=== PATIENT | female | born 1945 | race Caucasian/White ===

== ENCOUNTER 2019-12-11 04:50 | Inpatient (IN) | payer MEDICARE ==
[~2019-12-11] VITALS: Ht 165.1 cm; Wt 90.7 kg
[2019-12-11] MEDS ORDERED: GLIMEPIRIDE2 MG PO (04:56)
[2019-12-11] MEDS ORDERED: TRANDOLAPRIL2 MG PO (04:56)
[2019-12-11] MEDS ORDERED: GLUCOPHAGE1000 MG PO (04:56)
[2019-12-11] MEDS ORDERED: TENORMIN100 MG PO (04:56)
[2019-12-11] MEDS ORDERED: HYDROCHLOROTHIA25 MG PO (04:57)
[2019-12-11] MEDS ORDERED: FENOFIBRATE160 MG PO (04:57)
[2019-12-11] MEDS ORDERED: PRAVACHOL40 MG PO (04:57)
--- NOTE | 2019-12-11 05:02 | NUR ---
BS 237 @ 0556.
[2019-12-11 05:08] LABS: HEMOGLOBIN 12.8 g/dL (12-16); MCH 30.5 pg (26.0-34.0); MCV 95.5 fL (80.0-100.0); MEAN PLATELET VOLUME 9.8 fL (7.4-10.4); PLATELET COUNT 268 10x3/uL (130-400); RBC 4.19 10x6/uL (4.00-5.40); RDW 14.3 % (11.5-14.5)
[2019-12-11] MEDS ORDERED: BAYER CHEWABLE81 MG PO (05:09)
[2019-12-11 05:18] LABS: CALC OSMOLALITY 292 mosm/kg (275-300); CALCIUM 9.1 mg/dL (8.5-10.1); CHLORIDE - SERUM 102 mmol/L (98-107); CREATININE - SERUM 1.1 mg/dL (0.6-1.3); GLUCOSE 255 mg/dL (74-106); POTASSIUM - SERUM 3.6 mmol/L (3.5-5.1); SODIUM 140 mmol/L (136-145); UREA NITROGEN 27 mg/dL (7-18); eGFR NON AFRICAN AMERICAN 52 mL/min (90-120)
[2019-12-11 05:19] LABS: APTT 25.4 SECONDS (22.8-39.4); INR 0.89 (0.85-1.17)
[2019-12-11 05:27] LABS: D-DIMER-QUANTITATIVE 0.61 ug/mLFEU (0.20-0.54)
[2019-12-11 05:33] LABS: ALBUMIN 3.7 g/dL (3.4-5.0); ALKALINE PHOSPHATASE 48 U/L (30-120); ALT (SGPT) 34 U/L (10-68); BILIRUBIN - TOTAL 0.17 mg/dL (0.2-1.3); CKMB 1.3 U/L (0.0-3.6); CREATINE KINASE 70 UL (21-215); MAGNESIUM - SERUM 1.7 mg/dL (1.8-2.4); PROTEIN - SERUM 8.1 g/dL (6.4-8.2); THYROID STIMULATING HORMONE 8.04 uIU/mL (0.36-3.74); TROPONIN-I < 0.017 ng/mL (0.000-0.060)
[2019-12-11 05:38] LABS: EOSINOPHILS 1 % (0-7); LYMPHOCYTES 62 % (15-50); NEUTROPHILS 35 % (40-80); PLATELET ESTIMATE NORMAL
[2019-12-11 05:42] VITALS: BP 175/73
--- NOTE | 2019-12-11 06:13 | NUR ---
DR RASHEED CONSULTED VIA PHONE- [facility] IS AVAILABLE TO SEE PATIENT ON 12/12/19 IF ERP IS ON BOARD WITH HER WAITING UNTIL TOMORROW FOR HIS CONSULT. ALSO RECOMMENDED MRI OF THE BRAIN TODAY AND A CARDIOLOGY CONSULT TO BE COMPLETE. SPOKE TO DR. BECKHMA, [facility] AGREES WITH PLAN.
[2019-12-11 06:21] VITALS: BP 161/68
[2019-12-11] MEDS ORDERED: GARLIC PO (07:23)
[2019-12-11 07:25] VITALS: BP 166/82
--- NOTE | 2019-12-11 07:25 | NUR ---
FROM THE ER, SHE IS ALERT. SHE STATES THAT HER RIGHT ARM FEELS NUMB. SHE IS DIZZY AND HAS A HEADACHE. HER IS AT THE BEDSIDE. THE CALL LIGHT IS WITHIN REACH.
[2019-12-11 12:11] VITALS: BP 174/83
[2019-12-11 14:26] VITALS: Ht 165.1 cm; Wt 90.7 kg
[2019-12-11 16:54] VITALS: BP 152/72
[2019-12-11 21:58] VITALS: BP 141/78
[2019-12-12 00:51] VITALS: BP 136/88
[2019-12-12 05:25] LABS: BASOPHILS 0.4 % (0-2); EOSINOPHILS 1.1 % (0-7); HEMATOCRIT 39.4 % (36.0-48.0); HEMOGLOBIN 12.7 g/dL (12-16); IMMATURE GRANULOCYTES 0.8 % (0-5); LYMPHOCYTES 42.8 % (15-50); MCH 30.5 pg (26.0-34.0); MCHC 32.2 g/dL (31.0-37.0); MCV 94.7 fL (80.0-100.0); MEAN PLATELET VOLUME 9.8 fL (7.4-10.4); MONOCYTES 7.4 % (2-11); NEUTROPHILS 47.5 % (40-80); PLATELET COUNT 267 10x3/uL (130-400); RBC 4.16 10x6/uL (4.00-5.40); RDW 14.2 % (11.5-14.5); WBC 7.6 10x3/uL (4.8-10.8)
[2019-12-12 05:48] LABS: ALBUMIN 3.6 g/dL (3.4-5.0); ANION GAP 12.7 mmol/L (8-16); BILIRUBIN - TOTAL 0.34 mg/dL (0.2-1.3); CALCIUM 8.9 mg/dL (8.5-10.1); CARBON DIOXIDE 28.8 mmol/L (21.0-32.0); CHOL - HDL RATIO 4.5 ratio (2.3-4.1); LDL-HDL RATIO 2.1 ratio (1.5-3.5); MAGNESIUM - SERUM 1.8 mg/dL (1.8-2.4); PHOSPHOROUS 3.1 mg/dL (2.5-4.9); POTASSIUM - SERUM 3.5 mmol/L (3.5-5.1); PROTEIN - SERUM 8.1 g/dL (6.4-8.2); T4 THYROXIN - FREE 0.98 ng/dL (0.76-1.46)
[2019-12-12 06:16] VITALS: BP 142/82
[2019-12-12 07:30] VITALS: BP 138/78
[2019-12-12 09:36] VITALS: BP 138/78
--- NOTE | 2019-12-12 09:51 | NUR ---
Rehab Note- Acute Inpatient Rehab prescreen order received. The patient has [facility] insurance and will require a PreAuth prior to an inpatient acute rehab stay. Will need both PT & OT Evals for PreAuth process. Will continue to follow at this time. Thank you for this referral! Kennedi Currie RN Clinical Liaison, [facility]
--- NOTE | 2019-12-12 10:58 | NUR ---
ADMINISTERED MORNING MEDICATIONS AT THIS TIME. ASSESSMENT PERFORMED. PT HAS FAMILY AT BEDSIDE. PRN TYLENOL GIVEN FOR PAIN LEVEL 8/10. NO DIFFICULTIES. PT IS RESTING COMFORTABLY IN BED. DENIES ANY NEEDS. BED IN LOWEST POSITION, BED RAILS X2, CALL LIGHT WITHIN REACH. WILL CONTINUE TO MONITOR.
--- NOTE | 2019-12-12 13:08 | EC ---
PATIENT:VIRI BARAJAS DATE OF SERVICE: 12/11/19 SEX: F MEDICAL RECORD: [id number] DATE OF : 49 LOCATION:[facility] AGE OF PATIENT: 74 ADMISSION DATE: 12/11/19 REFERRING PHYSICIAN: INTERPRETING PHYSICIAN: DESTINEE HAN MD ECHOCARDIOGRAM REPORT ECHO CHARGES 4 ECHO COMPLETE Date: 12/11/19 CLINICAL DIAGNOSIS: DIZZINESS/SYNCOPE ECHOCARDIOGRAPHIC MEASUREMENTS (adult normal given) AC root (d.<3.7cm) 2.8 cm LV Septum d (<1.2 cm> 1.2 cm Valve Excursion 1.7 cm LV Septum (systole) 1.5 cm Left Atria (s.<4.0cm> 4.2 cm LVPW d(<1.2cm) 1.2 cm RV (d.<2.3cm) 2.9 cm LVPW (sytole) 2.0 cm LV diastole(<5.6CM) 5.2 cm MV E-F(>70mm/sec) cm LV systole 3.2 cm LVOT Diameter 1.8 cm MV exc.(>10mm) cm Est.ejection fraction (50-75%) % DOPPLER: LVIT cm/sec A 97.0 cm/sec E 65.0 cm/sec LA cm/sec RVSP 30.0 mmHg LVOT 81.0 cm/sec AOP1/2T m/s Asc. Ao 151 cm/sec RVOT 53.0 cm/sec RA cm/sec PA 90.0 cm/sec AV Gradient Peak 9.1 mmHg AV Mean 4.5 mmHg AV Area 1.3 cm MV Gradient Peak 5.1 mmHg MV Mean 2.0 mmHg MV Area cm COMMENTS: Ampoule Filler: 1 GARLAND HACKETTOE Line Pilot: 3 Dr. Ascencio TAPE# PACS Pericardial Effusion N DATE OF SERVICE: Adequate 2D, color flow imaging, spectral Doppler, and M-Mode. Borderline LVH. LV internal dimension is normal. Wall motion is normal. EF is greater than or equal to 55%. Aortic valve is tricuspid. No evidence of stenosis by Doppler interrogation. Left atrium is minimally dilated at 4.2 cm. Mitral valve shows no prolapse. Trace MR. Right-sided chambers are grossly normal. Trace TR. ECHOCARDIOGRAM REPORT [id number] VIRI BARAJAS TRANSINT:[id number] Voice Confirmation ID: [id number] DOCUMENT ID: [id number] DESTINEE HAN MD at 1308 CC: [id number] DICTATION DATE: 12/11/19 1124 SENIOR HEALTH PHYSICS TECHNICIAN: 12/11/19 1353 ADM IN [place] [id number] [place] [id number]
--- NOTE | 2019-12-12 13:17 | NUR ---
ASSESSED BLOOD SUGAR, 317. ADMINSITERED 12 UNITS INSULIN PER SLIDING SCALE. RESTING COMFORTABLY IN BED. DENIES ANY NEEDS. BED IN LOWEST POSITION, BED RAILS X2, CALL LIGHT WITHIN REACH. WILL CONTINUE TO MONITOR.
--- NOTE | 2019-12-12 16:46 | NUR ---
HUNG NEW BAG OF FLUIDS. PT RESTING COMFORTABLY IN BED, FAMILY AT BEDSIDE. DENIES ANY NEEDS. BED IN LOWEST POSITION, BED RAILS X2, CALL LIGHT WITHIN REACH. WILL CONTINUE TO MONITOR.
[2019-12-12 16:55] VITALS: BP 138/60
--- NOTE | 2019-12-12 19:49 | NUR ---
ADMINISTERED PRN TYLENOL FOR HEADACHE. ASSESSED BLOOD SUGAR, 289. GAVE 10 UNITS INSULIN PER SLIDING SCALE. PT IS RESTING COMFORTABLY IN BED. DENIES ANY NEEDS. WILL CONTIUE TO MONITOR.
[2019-12-12 20:58] VITALS: BP 163/77
--- NOTE | 2019-12-12 21:15 | NUR ---
ASSISTED PT TO THE RESTROOM WITH MINIMAL ASSIST. SHE DENIES PAIN OR NEEDS. SHE STATES SHE HAS WEAKNESS TO HER RIGHT ARMS AND LEGS. BROCK ALARM ON FOR SAFETY. HER BED IS LOW AND CALL LIGHT IS WITHIN REACH.
[2019-12-13 00:32] VITALS: BP 123/73
[2019-12-13 05:05] LABS: BASOPHILS 0.5 % (0-2); EOSINOPHILS 2.7 % (0-7); HEMOGLOBIN 12.1 g/dL (12-16); IMMATURE GRANULOCYTES 0.8 % (0-5); MCH 30.3 pg (26.0-34.0); MCHC 31.8 g/dL (31.0-37.0); MCV 95.2 fL (80.0-100.0); MEAN PLATELET VOLUME 9.7 fL (7.4-10.4); MONOCYTES 7.3 % (2-11); NEUTROPHILS 42.7 % (40-80); PLATELET COUNT 244 10x3/uL (130-400); RBC 3.99 10x6/uL (4.00-5.40); RDW 14.3 % (11.5-14.5); WBC 6.6 10x3/uL (4.8-10.8)
[2019-12-13 05:18] LABS: ALBUMIN 3.4 g/dL (3.4-5.0); ANION GAP 11.2 mmol/L (8-16); BILIRUBIN - TOTAL 0.33 mg/dL (0.2-1.3); CALCIUM 8.4 mg/dL (8.5-10.1); CARBON DIOXIDE 28.4 mmol/L (21.0-32.0); MAGNESIUM - SERUM 1.8 mg/dL (1.8-2.4); POTASSIUM - SERUM 3.6 mmol/L (3.5-5.1); PROTEIN - SERUM 7.4 g/dL (6.4-8.2)
[2019-12-13 05:20] LABS: APTT 25.3 SECONDS (22.8-39.4); PROTIME 13.2 SECONDS (11.6-15.0)
[2019-12-13 05:29] VITALS: BP 132/81
--- NOTE | 2019-12-13 08:22 | NUR ---
RESTING IN BED, NO DISTRESS NOTED, FAMILY IN ROOM, CONT TO MONITOR VERTIGO
[2019-12-13 08:30] VITALS: BP 143/68
[2019-12-13 10:10] LABS: THYROGLOBULIN ANTIBODY <1.0 IU/mL (0.0-0.9); THYROID PEROXIDASE ABS <9 IU/mL (0-34)
[2019-12-13 12:16] VITALS: BP 158/71
--- NOTE | 2019-12-13 14:18 | NUR ---
Nutrition follow-up: Diet: ADA consistent CHO PO Intake 100% of last 4 meals Labs reviewed; glucose poor control-intermediate SS insulin; amarly, glucophage Wt: 199# PO intake good at this time. Pt might benefit from long-acting insulin added. RDN following.
[2019-12-13 14:54] VITALS: BP 159/74
[2019-12-13 20:00] VITALS: BP 118/67
--- NOTE | 2019-12-13 22:15 | NUR ---
A&O X 4, SUPINE IN BED. REPORTS SOME WEAKNESS WHILE AMBULATING. AND HEACHE PAIN 02/18. NO FURTHER NEEDS VOICED AT THIS TIME. CTM
[2019-12-14 04:00] VITALS: BP 150/87
[2019-12-14 05:11] LABS: BASOPHILS 0.4 % (0-2); EOSINOPHILS 2.4 % (0-7); HEMATOCRIT 40.9 % (36.0-48.0); IMMATURE GRANULOCYTES 0.5 % (0-5); LYMPHOCYTES 50.9 % (15-50); MCH 30.5 pg (26.0-34.0); MCHC 31.8 g/dL (31.0-37.0); MEAN PLATELET VOLUME 9.8 fL (7.4-10.4); MONOCYTES 6.6 % (2-11); NEUTROPHILS 39.2 % (40-80); RBC 4.26 10x6/uL (4.00-5.40); RDW 14.3 % (11.5-14.5)
[2019-12-14 05:27] LABS: WBC 9.2 10x3/uL (4.8-10.8)
[2019-12-14 05:28] LABS: PLATELET COUNT 294 10x3/uL (130-400)
[2019-12-14 05:57] LABS: ALBUMIN 3.6 g/dL (3.4-5.0); ANION GAP 12.8 mmol/L (8-16); BILIRUBIN - TOTAL 0.39 mg/dL (0.2-1.3); CALCIUM 8.4 mg/dL (8.5-10.1); CARBON DIOXIDE 26.8 mmol/L (21.0-32.0); CREATININE - SERUM 1.1 mg/dL (0.6-1.3); PHOSPHOROUS 2.5 mg/dL (2.5-4.9); POTASSIUM - SERUM 3.6 mmol/L (3.5-5.1); PROTEIN - SERUM 8.2 g/dL (6.4-8.2)
[2019-12-14 08:00] VITALS: BP 167/82
--- NOTE | 2019-12-14 10:48 | NUR ---
PT ALERT X 4. BREATH SOUNDS CLEAR BILAT. IV TO RIGHT HAND PATENT, DRESSING CDI. TELEMETRY IN PLACE. PT REPORTING PAIN OF 3/10, WILL CONTINUE TO MONITOR. BED LOW, CALL LIGHT IN REACH. NO OTHER NEEDS AT THIS TIME.
[2019-12-14 12:00] VITALS: BP 168/83
[2019-12-14 16:00] VITALS: BP 154/65
[2019-12-14 20:00] VITALS: BP 136/68
--- NOTE | 2019-12-14 20:00 | NUR ---
PATIENT RESTING IN BED WATCHING TV. NO S/S OF ACUTE DISTRESS. NO C/O AT THIS TIME. PATIENT IS ON TELEMETRY. PATIENT HAS RIGHT HAND, NORMAL SALINE @ 50 ML/HR. IV IS PATENT WITHOUT REDNESS, SWELLING, OR TENDERNESS. PATIENT NEEDS ASSITANCE TO THE BATHROOM, MOSTLY BECAUSE SHE FEELS WEAK AND APPRECIATES THE HELP. PATIENT STATES THAT "I'M FEELING BETTER", WHEN ASKED ABOUT THE CHEST TIGHNESS SHE PREVIOUSLY HAD DURING THE DAY, AND THAT THE TINGLING ON ONE SIDE HAD RESOLVED. CALL LIGHT WITHIN REACH. WILL CONTINUE TO MONITOR.
--- NOTE | 2019-12-15 02:12 | NUR ---
I have reviewed this patient and I concur with the Shift Assessment completed by the Licensed Practical Nurse today this shift.
[2019-12-15 04:00] VITALS: BP 154/96
[2019-12-15 06:58] LABS: BASOPHILS 0.3 % (0-2); HEMATOCRIT 38.3 % (36.0-48.0); HEMOGLOBIN 12.4 g/dL (12-16); IMMATURE GRANULOCYTES 0.4 % (0-5); LYMPHOCYTES 43.4 % (15-50); MCHC 32.4 g/dL (31.0-37.0); MCV 95.8 fL (80.0-100.0); MEAN PLATELET VOLUME 9.6 fL (7.4-10.4); MONOCYTES 6.8 % (2-11); NEUTROPHILS 47.1 % (40-80); PLATELET COUNT 247 10x3/uL (130-400); RDW 14.2 % (11.5-14.5); WBC 6.9 10x3/uL (4.8-10.8)
[2019-12-15 07:19] LABS: ALBUMIN 3.4 g/dL (3.4-5.0); ANION GAP 11.6 mmol/L (8-16); BILIRUBIN - TOTAL 0.34 mg/dL (0.2-1.3); CALCIUM 8.6 mg/dL (8.5-10.1); CREATININE - SERUM 1.1 mg/dL (0.6-1.3); PHOSPHOROUS 2.6 mg/dL (2.5-4.9); POTASSIUM - SERUM 3.6 mmol/L (3.5-5.1); PROTEIN - SERUM 7.5 g/dL (6.4-8.2)
[2019-12-15 08:00] VITALS: BP 135/71
--- NOTE | 2019-12-15 10:58 | NUR ---
PT UPRIGHT IN BED UPON ENTERING. MEDICATION GIVEN AT THIS TIME. BLOOD SUGAR ASSESSED. 310, 20 UNITS INSULIN PER SLIDING SCALE. PT HAD NOFDIFFICULTIES WITH MEDICATIONS. AID IN ROOM HELPING PT GET IN THE SHOWER. ASSESSMENT PERFORMED AT THIS TIME. PT GETTING SHOWER UPON EXITING ROOM. DENIES ANY NEEDS. WILL CONTINUE TO MONITOR.
[2019-12-15 12:00] VITALS: BP 139/76; BP 170/104
--- NOTE | 2019-12-15 14:46 | NUR ---
PT SUPINEIN BED UPON ENTERING. ALERT AND ORIENTED X4. ASSESSED BLOOD SUGAR. GAVE 16 UNITS INSULIN PER SLIDING SCALE FOR SUGAR OF 282. SPIKED NEW BAG OF FLUIDS. PROVIDED PT WITH FRESH GLASS OF WATER. PT REQUESTS A STOOL SOFTENER. WILL CONTACT DOCTOR. DENIES ANY OTHER NEEDS. BED IN LOWEST POSITION, BED RAILS X2, CALL LIGHT WITHIN REACH. WILL CONTINUE TO MONITOR.
--- NOTE | 2019-12-15 14:54 | NUR ---
PT OUT FOR CT.
--- NOTE | 2019-12-15 15:27 | NUR ---
PT BACK FROM CT. RECONNECTED TO IV AND TELEMETRY. FAMILY AT BEDSIDE. PT RESTING COMFORTABLY IN BED. DENIES ANY NEEDS. WILL CONTINUE TO MONITOR.
[2019-12-15 16:00] VITALS: BP 157/79
--- NOTE | 2019-12-15 17:42 | NUR ---
I have reviewed this patient and I concur with the Shift Assessment completed by the Licensed Practical Nurse today this shift.
--- NOTE | 2019-12-15 17:46 | NUR ---
ADMINISTERED LANTUS PEN. PT RESTING COMFORTABLY IN BED. DENIES ANY NEEDS. WILL CONTINUE TO MONITOR.
[2019-12-15 20:00] VITALS: BP 157/74
--- NOTE | 2019-12-16 02:18 | NUR ---
I have reviewed this patient and I concur with the Shift Assessment completed by the Licensed Practical Nurse today this shift.
[2019-12-16 04:00] VITALS: BP 180/84
[2019-12-16 07:07] LABS: BASOPHILS 0.4 % (0-2); EOSINOPHILS 1.8 % (0-7); HEMATOCRIT 39.1 % (36.0-48.0); HEMOGLOBIN 12.6 g/dL (12-16); IMMATURE GRANULOCYTES 0.7 % (0-5); LYMPHOCYTES 36.4 % (15-50); MCH 30.8 pg (26.0-34.0); MCHC 32.2 g/dL (31.0-37.0); MCV 95.6 fL (80.0-100.0); MEAN PLATELET VOLUME 10.1 fL (7.4-10.4); MONOCYTES 7.7 % (2-11); PLATELET COUNT 239 10x3/uL (130-400); RBC 4.09 10x6/uL (4.00-5.40); RDW 14.4 % (11.5-14.5); WBC 7.7 10x3/uL (4.8-10.8)
[2019-12-16 07:34] LABS: ALBUMIN 3.3 g/dL (3.4-5.0); ANION GAP 12.5 mmol/L (8-16); BILIRUBIN - TOTAL 0.36 mg/dL (0.2-1.3); CALCIUM 8.5 mg/dL (8.5-10.1); CARBON DIOXIDE 26.4 mmol/L (21.0-32.0); CREATININE - SERUM 0.9 mg/dL (0.6-1.3); MAGNESIUM - SERUM 2.1 mg/dL (1.8-2.4); PHOSPHOROUS 2.3 mg/dL (2.5-4.9); POTASSIUM - SERUM 3.9 mmol/L (3.5-5.1); PROTEIN - SERUM 7.6 g/dL (6.4-8.2)
--- NOTE | 2019-12-16 08:21 | NUR ---
taken to ct this am per w/c, grover kimble, in room, cont to monitor signs of weakness and numbness
[2019-12-16 10:51] VITALS: BP 168/76
--- NOTE | 2019-12-16 11:39 | NUR ---
PRN TYLENOL ADMINISTERED FOR HEADACHE RATED A 10/10.
[2019-12-16 13:39] VITALS: BP 154/84
[2019-12-16] MEDS ORDERED: SYNTHROID25 MCG PO (15:29)
[2019-12-16] MEDS ORDERED: AGGRENOX 200/251 CAP PO (15:30)
[2019-12-16 17:25] VITALS: BP 163/72
[2019-12-16 20:00] VITALS: BP 184/82
[2019-12-17] VITALS: BP 152/79
--- NOTE | 2019-12-17 01:35 | NUR ---
I have reviewed this patient and I concur with the Shift Assessment completed by the Licensed Practical Nurse today this shift.
[2019-12-17 04:00] VITALS: BP 170/93
[2019-12-17] MEDS ORDERED: PLAVIX75 MG PO (06:43)
[2019-12-17 06:50] LABS: ANION GAP 11.9 mmol/L (8-16); CALCIUM 8.9 mg/dL (8.5-10.1); CARBON DIOXIDE 25.6 mmol/L (21.0-32.0); CREATININE - SERUM 0.9 mg/dL (0.6-1.3); MAGNESIUM - SERUM 2.1 mg/dL (1.8-2.4); PHOSPHOROUS 2.9 mg/dL (2.5-4.9); POTASSIUM - SERUM 3.5 mmol/L (3.5-5.1)
[2019-12-17 06:52] LABS: BASOPHILS 0.4 % (0-2); EOSINOPHILS 2.4 % (0-7); HEMATOCRIT 40.3 % (36.0-48.0); IMMATURE GRANULOCYTES 0.5 % (0-5); LYMPHOCYTES 41.9 % (15-50); MCH 30.8 pg (26.0-34.0); MCHC 32.3 g/dL (31.0-37.0); MCV 95.5 fL (80.0-100.0); MEAN PLATELET VOLUME 9.9 fL (7.4-10.4); NEUTROPHILS 48.8 % (40-80); PLATELET COUNT 272 10x3/uL (130-400); RBC 4.22 10x6/uL (4.00-5.40); RDW 14.6 % (11.5-14.5); WBC 8.2 10x3/uL (4.8-10.8)
[2019-12-17 08:05] VITALS: BP 181/88
--- NOTE | 2019-12-17 08:15 | NUR ---
RESTING IN BED, NO DISTRESS NOTED, IV INFUSING, CONT TO MONITOR SUGARS AND SYMPTOMS, DC ORDERS ON CHART
--- NOTE | 2019-12-17 10:35 | NUR ---
IV REMOVED, TIP INTACT, REVIEWED DC ORDERS, VOICED NO CONCERNS
--- NOTE | 2019-12-17 11:05 | NUR ---
TAKEN FROM HOSPITAL PER WC
== END 2019-12-17 11:22 | disposition home or self-care (01) | DRG 69 ==
LOC: D.ER 04:50 → D.MS 06:00 → OBSVTIME 06:00 → D.MS 12-12 13:55
PROVIDERS: Family Medicine; ADMIT Emergency Medicine; ATTEND Emergency Medicine
DX: G45.9 Transient cerebral ischemic attack, unspecified (principal); R55 Syncope and collapse; I10 Essential (primary) hypertension; E83.42 Hypomagnesemia; E03.9 Hypothyroidism, unspecified; E11.65 Type 2 diabetes mellitus with hyperglycemia; E78.5 Hyperlipidemia, unspecified; G56.01 Carpal tunnel syndrome, right upper limb

== ENCOUNTER 2020-01-04 08:00 | Outpatient (CLI) | payer MEDICARE ==
[2019-12-11 14:26] VITALS: BMI 33.2
[~2020-01-04 08:00] MED LIST: AGGRENOX 200/251 CAP PO; BAYER CHEWABLE81 MG PO; FENOFIBRATE160 MG PO; GARLIC PO; GLIMEPIRIDE2 MG PO; GLUCOPHAGE1000 MG PO; HYDROCHLOROTHIA25 MG PO; PLAVIX75 MG PO; PRAVACHOL40 MG PO; SYNTHROID25 MCG PO; TENORMIN100 MG PO; TRANDOLAPRIL2 MG PO
== END 2020-01-04 23:59 | disposition home or self-care (01) ==
LOC: D.MAMMO 08:00
PROVIDERS: ATTEND Family Medicine
DX: Z12.31 Encounter for screening mammogram for malignant neoplasm of breast (principal)